=== PATIENT | female | born 1960 | race Caucasian/White ===

== ENCOUNTER → 2024-03-26 12:21 | Outpatient (REF) | payer MEDICARE, SELFPAY | LOC: HWRAD 12:21 | PROVIDERS: ATTENDING PHYSICIAN Urology; FAMILY PHYSICIAN General Practice | DX: N30.10 Interstitial cystitis (chronic) without hematuria (principal); N31.9 Neuromuscular dysfunction of bladder, unspecified | CPT/HCPCS: 76770 ==

== ENCOUNTER → 2024-04-07 10:51 | Outpatient (REF) | payer MEDICARE, SELFPAY | LOC: PAVMRI 10:51 | PROVIDERS: ATTENDING PHYSICIAN Urology; FAMILY PHYSICIAN General Practice | DX: R93.89 Abnormal findings on diagnostic imaging of other specified body structures (principal); N28.89 Other specified disorders of kidney and ureter; N13.30 Unspecified hydronephrosis; R10.9 Unspecified abdominal pain | CPT/HCPCS: 74183; A9575 ==